=== PATIENT | male | born 1975 | race Caucasian/White ===

== ENCOUNTER 2020-01-20 13:58 | Inpatient (IN) | payer OTHER ==
[~2020-01-20] VITALS: Ht 160 cm; Wt 83.9 kg
--- NOTE | 2020-01-20 14:27 | NUR ---
PATIENT CAME TO ER BIB TO BED 17 C/O SOB. PATIENT STATES THAT HE IS COVID POSITIVE SINCE THE 1ST OF DECEMEBER. PATIENT ALSO C/O CHILLS, BODYACHES, AND HEADACHE. PATIENT IS AAOX4. BREATHING EVENLY AND UNLABORED ON NASAL CANNULA 3L AT 95%. CONNECTED TO THE MONITOR.
--- NOTE | 2020-01-20 14:43 | NUR ---
PATIENT'S BLOOD DRAWN AND SENT TO THE LAB.
[2020-01-20] MEDS ORDERED: IPRATROPIUM NEB FS 0.5 MG/2.5 ML AMPUL.NEB ONE (14:55)
[2020-01-20] MEDS ORDERED: ALBUTEROL FS 2.5 MG/3 ML VIAL.NEB ONE (14:55)
[2020-01-20] MEDS ORDERED: ACET325T53 PO (14:58)
[2020-01-20] MEDS ORDERED: DEXAMETHASONE SOD PHOSPHATE 10 MG/ML VIAL IV ONE (15:00)
[2020-01-20] MEDS ORDERED: ALBUTEROL FS 2.5 MG/3 ML VIAL.NEB NEB ONE (15:00)
[2020-01-20] MEDS ORDERED: IPRATROPIUM NEB FS 0.5 MG/2.5 ML AMPUL.NEB NEB ONE (15:00)
[2020-01-20 15:37] LABS: BASOPHILS % (AUTO) 0.1 % (0.0-2.0); HEMATOCRIT 43 % (39-51); HEMOGLOBIN 14.2 g/dL (13.5-17.5); LYMPHOCYTES # (AUTO) 0.9 /CMM (0.8-4.8); LYMPHOCYTES % (AUTO) 4.8 % (20.0-44.0); MEAN CORPUSCULAR HGB CONC 33 g/dl (31.0-36.0); MEAN CORPUSCULAR VOLUME 93 fL (80-96); MONOCYTES # (AUTO) 0.7 /CMM (0.1-1.30); NEUTROPHILS # (AUTO) 16.8 /CMM (1.8-8.9); NEUTROPHILS % (AUTO) 91.1 % (43.0-81.0); PLATELET COUNT (AUTO) 321 /CMM (150-450); RED BLOOD CELL COUNT(AUTO) 4.61 MIL/uL (4.5-6.0); WHITE BLOOD COUNT (AUTO) 18.4 K/uL (4.3-11.0)
[2020-01-20 15:44] LABS: CALCIUM, SERUM 7.9 mg/dL (8.5-10.1); CARBON DIOXIDE 25 mmol/L (21-32); CHLORIDE 99 mmol/L (98-107); GLUCOSE 128 mg/dL (74-106); POTASSIUM 3.8 mmol/L (3.5-5.1); SODIUM SERUM 133 mmol/L (136-145); UREA NITROGEN, BLOOD 12 mg/dL (7-18)
[2020-01-20 15:59] LABS: ALANINE AMINOTRANSFERASE 121 U/L (12-78); ALBUMIN 2.9 g/dL (3.4-5.0); ALKALINE PHOSPHATASE 82 U/L (46-116); ASPARTATE AMINOTRANSFERASE 50 U/L (15-37); B-TYPE NATRIURETIC PEPTIDE 124 PG/ML (0-125); BILIRUBIN,TOTAL 0.7 mg/dL (0.2-1.0); TOTAL PROTEIN, SERUM 7.3 g/dL (6.4-8.2)
[2020-01-20 16:21] LABS: CREATINE KINASE, TOTAL 132 U/L (39-308); FERRITIN 1273 ng/mL (8-388)
--- NOTE | 2020-01-20 17:25 | NUR ---
CALLED NURSING SUP FOR TELE BED.
[2020-01-20] MEDS ORDERED: MAG HYDROX/AL HYDROX/SIMETH 30 ML UDC PO PRN (18:00)
[2020-01-20] MEDS ORDERED: MAGNESIUM HYDROXIDE 30 ML UDC PO PRN (18:00)
[2020-01-20] MEDS ORDERED: Z GUARD REMEDY 2 OZ OINT TP PRN (18:00)
[2020-01-20] MEDS ORDERED: ACETAMINOPHEN 325 MG TABLET PO PRN (18:00)
[2020-01-20] MEDS ORDERED: HYDROCODONE/APAP 5/325MG TABLET PO PRN (18:00)
[2020-01-20] MEDS ORDERED: ONDANSETRON HCL/PF 4 MG/2 ML VIAL IVP PRN (18:00)
[2020-01-20] MEDS ORDERED: ZOLPIDEM TARTRATE 5 MG TABLET PO PRN (18:00)
[2020-01-20] MEDS ORDERED: DEXAMETHASONE SOD PHOSPHATE 10 MG/ML VIAL ONE ×2 (18:11→22:42)
[2020-01-20] MEDS: DOXYCYCLINE HYCLATE (100 MG) 100 MG TABLET PO SCH (18:13)
--- NOTE | 2020-01-20 21:39 | NUR ---
REPORT GIVEN TO KINA KEARNS FOR ROCKY.
--- NOTE | 2020-01-20 21:52 | NUR ---
PATIENT TAKEN ASSIGNED ROOM FOR ROCKY.
--- NOTE | 2020-01-20 21:55 | NUR ---
TELE/RN OPENING NOTES: RECEIVED REPORT FROM SADIA MAHONEY NURSE. PATIENT IS A/O X 4, WITH NO SIGNS OF DISTRESS. NO SOB NOTED. BREATHING EVEN AND UNLABORED. ON 3L OXYGEN VIA NASAL CANNULA. DENIES PAIN AND DISCOMFORT AT THIS TIME. IV ON THE R FA #18G SL. SKIN WARM, DRY AND INTACT. NO PHOTOS TAKEN. TELE MONITOR SR. ORIENTED TO STAFF AND UNIT. SAFETY MEASURES ARE INITIATED. BED IN LOW, LOCKED POSITION WITH SIDE RAILS UP X 2. CALL LIGHT WITHIN REACH. WILL CONTINUE TO MONITOR ACCORDINGLY.
[2020-01-20] MEDS ORDERED: REMDESIVIR (CHARGED) 200 MG, *LOADING DOSE 1 EA in IV NS 0.9% 210 ML IV ONE (22:00)
[2020-01-20] MEDS ORDERED: CEFTRIAXONE 1 G in IV D5W 50 ML IV SCH (22:00)
[2020-01-20] MEDS ORDERED: DEXAMETHASONE SOD PHOSPHATE 6 MG in IV D5W 50 ML IV SCH (22:00)
[2020-01-20] MEDS: ENOXAPARIN SODIUM 40 MG/0.4 ML DISP.SYRIN SQ SCH (22:17)
[2020-01-20] MEDS ORDERED: CEFTRIAXONE 1 G VIAL ONE (22:42)
[2020-01-20 22:55] VITALS: BP 123/76
[2020-01-21] VITALS: BP 110/76
[2020-01-21] MEDS: CEFTRIAXONE 1 G in IV D5W 50 ML IV SCH ×2 (00:19→23:34)
[2020-01-21 04:00] VITALS: BP 109/72
[2020-01-21 06:43] LABS: HEMATOCRIT 39 % (39-51); HEMOGLOBIN 13.3 g/dL (13.5-17.5); LYMPHOCYTES # (AUTO) 0.7 /CMM (0.8-4.8); LYMPHOCYTES % (AUTO) 4.3 % (20.0-44.0); MEAN CORPUSCULAR HGB CONC 34 g/dl (31.0-36.0); MEAN CORPUSCULAR VOLUME 91 fL (80-96); MONOCYTES # (AUTO) 0.8 /CMM (0.1-1.30); MONOCYTES % (AUTO) 4.9 % (2.0-12.0); NEUTROPHILS # (AUTO) 14.1 /CMM (1.8-8.9); NEUTROPHILS % (AUTO) 90.8 % (43.0-81.0); PLATELET COUNT (AUTO) 393 /CMM (150-450); RED BLOOD CELL COUNT(AUTO) 4.23 MIL/uL (4.5-6.0); WHITE BLOOD COUNT (AUTO) 15.5 K/uL (4.3-11.0)
[2020-01-21 07:00] LABS: ALBUMIN 2.5 g/dL (3.4-5.0); BILIRUBIN,DIRECT 0.2 mg/dL (0.0-0.2); BILIRUBIN,TOTAL 0.4 mg/dL (0.2-1.0); TOTAL PROTEIN, SERUM 6.9 g/dL (6.4-8.2)
[2020-01-21 07:06] LABS: CALCIUM, SERUM 7.6 mg/dL (8.5-10.1); CREATININE 0.9 mg/dL (0.6-1.3); MAGNESIUM 2.7 mg/dL (1.8-2.4); PHOSPHORUS 2.3 mg/dL (2.5-4.9); POTASSIUM 3.9 mmol/L (3.5-5.1)
[2020-01-21 07:21] LABS: THYROID STIMULATING HORMONE 0.517 uIU/mL (0.358-3.74)
--- NOTE | 2020-01-21 07:30 | NUR ---
TELE/RN CLOSING NOTES: PATIENT REMAINS A/O X 4, WITH NO SIGNS OF DISTRESS. NO SOB NOTED. BREATHING EVEN AND UNLABORED. ON 3L OXYGEN VIA NASAL CANNULA. DENIES PAIN AND DISCOMFORT AT THIS TIME. IV ON THE R FA #18G SL. SKIN WARM, DRY AND INTACT. NO PHOTOS TAKEN. TELE MONITOR SR. SAFETY MEASURES ARE IN PLACE. BED IN LOW, LOCKED POSITION WITH SIDE RAILS UP X 2. CALL LIGHT WITHIN REACH. WILL ENDORSE TO DAY SHIFT FOR ROCKY.
[2020-01-21 08:00] VITALS: BP 109/65
--- NOTE | 2020-01-21 08:03 | NUR ---
SILK WINDING MACHINE OPERATOR OPEN NOTES PATIENT IS A/O X 4 WITH NO SIGNS OF DISTRESS ON 3L OF NASAL CANNULA. IV R FA #18G SL. NO COMPLAIN OF PAIN AT THIS TIME. TELE MONITOR SR. SAFETY MEASURES ARE APPLIED, BED IS IN LOW POSITION SIDE RAILS UP X 2. CALL LIGHT WITHIN REACH. WILL CONTINUE TO MONITOR.
[2020-01-21] MEDS: DOXYCYCLINE HYCLATE (100 MG) 100 MG TABLET PO SCH ×2 (09:45→16:55)
[2020-01-21] MEDS: PANTOPRAZOLE 40 MG TABLET.DR PO SCH (09:45)
[2020-01-21 12:00] VITALS: BP 116/71
[2020-01-21] MEDS: DEXAMETHASONE SOD PHOSPHATE 10 MG/ML VIAL IV SCH (12:30)
[2020-01-21] MEDS ORDERED: NEUTRA PHOS 1 POWD.PACKET PO ONE (15:00)
[2020-01-21 15:20] LABS: C-REACTIVE PROTEIN 32.5 mg/dL (0.0-0.9)
[2020-01-21 16:00] VITALS: BP 110/67
[2020-01-21] MEDS: REMDESIVIR (CHARGED) 100 MG in IV NS 0.9% 230 ML IV SCH (16:55)
--- NOTE | 2020-01-21 19:32 | NUR ---
MANAGER MATERIAL CLOSING NOTES PATIENT IS A/O X 4 WITH NO SIGNS OF DISTRESS ON 3L OF NASAL CANNULA. IV R FA #18G SL. NO COMPLAIN OF PAIN AT THIS TIME. TELE MONITOR SR 91. PATIENT KEPT CLEAN AND DRY. ALL NEEDS, CARE, TREATMENT,AND MEDICATIONS WERE ADMINISTERED ANTICIPATED PER ORDER. SAFETY MEASURES ARE APPLIED, BED IS IN LOW POSITION SIDE RAILS UP X 2. CALL LIGHT WITHIN REACH WILL ENDORSE TO THE NEURO UROLOGIST NURSE.
[2020-01-21 20:00] VITALS: BP_SYST 108; BP_SYST 134; BP_DIAS 67; BP_DIAS 85
--- NOTE | 2020-01-21 20:40 | NUR ---
MARKETING OPERATIONS COORDINATOR NOTES RECEIVED ON BED A/O X4,BREATHING REGULAR,NOT IN ANY FORM OF DISTRESS.O2 3L/NC IN USED,O2 SAT 93%.SALINE LOCK RFA INTACT AND PATENT.DENIES DISCOMFORTS AT THE MOMENT.CALL LIGHT IN REACH,NEEDS ANTICIPATED.
[2020-01-21] MEDS: ENOXAPARIN SODIUM 40 MG/0.4 ML DISP.SYRIN SQ SCH (21:37)
[2020-01-22] VITALS: BP_SYST 98; BP_DIAS 54; BP_DIAS 57
[2020-01-22 04:00] VITALS: BP 106/61
[2020-01-22 06:02] LABS: BASOPHILS % (AUTO) 0.1 % (0.0-2.0); HEMATOCRIT 39 % (39-51); HEMOGLOBIN 13.3 g/dL (13.5-17.5); LYMPHOCYTES % (AUTO) 8.2 % (20.0-44.0); MEAN CORPUSCULAR HGB CONC 34 g/dl (31.0-36.0); MEAN CORPUSCULAR VOLUME 91 fL (80-96); MONOCYTES # (AUTO) 1.5 /CMM (0.1-1.30); MONOCYTES % (AUTO) 11.8 % (2.0-12.0); NEUTROPHILS # (AUTO) 10.1 /CMM (1.8-8.9); NEUTROPHILS % (AUTO) 79.9 % (43.0-81.0); PLATELET COUNT (AUTO) 475 /CMM (150-450); RED BLOOD CELL COUNT(AUTO) 4.32 MIL/uL (4.5-6.0); WHITE BLOOD COUNT (AUTO) 12.6 K/uL (4.3-11.0)
--- NOTE | 2020-01-22 06:23 | NUR ---
[facility] CONSULTANT NOTES FAIRLY RESTED,ASLEEP MOST OF THE NIGHT,AFEBRILE,NO SOB,O2 IN USED AT 3/NC TO KEEP O2 SAT ABOVE 90%,JERAMY LOCK REMAINS PATENT.DUE IV ABX ADMINISTERED SCHEDULED.NO EPISODE OF DIARRHEA NOTED.IN NO ACUTE DISTRESS.
[2020-01-22 06:26] LABS: ALBUMIN 2.4 g/dL (3.4-5.0); BILIRUBIN,DIRECT 0.2 mg/dL (0.0-0.2); BILIRUBIN,TOTAL 0.4 mg/dL (0.2-1.0); CALCIUM, SERUM 8.2 mg/dL (8.5-10.1); PHOSPHORUS 3.8 mg/dL (2.5-4.9); POTASSIUM 4.5 mmol/L (3.5-5.1); TOTAL PROTEIN, SERUM 6.6 g/dL (6.4-8.2)
[2020-01-22 08:00] VITALS: BP 100/61
[2020-01-22] MEDS: PANTOPRAZOLE 40 MG TABLET.DR PO SCH (09:06)
[2020-01-22] MEDS: DOXYCYCLINE HYCLATE (100 MG) 100 MG TABLET PO SCH ×2 (09:06→18:12)
[2020-01-22] MEDS: DEXAMETHASONE SOD PHOSPHATE 10 MG/ML VIAL IV SCH (09:06)
[2020-01-22 15:38] LABS: C-REACTIVE PROTEIN 9.8 mg/dL (0.0-0.9)
[2020-01-22 16:00] VITALS: BP 105/65
[2020-01-22] MEDS: REMDESIVIR (CHARGED) 100 MG in IV NS 0.9% 230 ML IV SCH (18:31)
--- NOTE | 2020-01-22 19:40 | NUR ---
TELE/RN OPENING NOTES: RECEIVED PATIENT A/O X 4, VERBALLY RESPONSIVE AND ABLE TO MAKE NEEDS KNOWN. NO SOB NOTED, NO SIGNS OF DISTRESS. BREATHING EVEN AND UNLABORED. ON 3L OXYGEN VIA NASAL CANNULA SATURATING AT 93%. WILL ALEJO TO TITRATE THE O2 PT TOLERATES. NO C/O PAIN AND DISCOMFORT AT THIS TIME. NO IV AT THIS TIME. WILL INSERT A NEW IV SITE. SKIN WARM, DRY AND INTACT. ON TELE MONITORING WITH READING OF SR. SAFETY MEASURES ARE IN PLACE. BED IN LOW, LOCKED POSITION WITH SIDE RAILS UP X 2. CALL LIGHT WITHIN REACH. WILL CONTINUE TO MONITOR ACCORDINGLY.
--- NOTE | 2020-01-22 19:46 | NUR ---
TELE/RN NOTES: INFORMED DR. ANSHUL FRANCIS THAT PT IS COVID AG RAPID +, BUT NO PCR WAS DONE. PER DR. FRANCIS, NO NEED FOR PCR.
--- NOTE | 2020-01-22 19:47 | NUR ---
TELE/RN NOTES: PT. NEW IV SITE IS ON THE LEFT HAND #22G. INTACT AND PATENT, FLUSHING WELL.
[2020-01-22 20:00] VITALS: BP 99/62
--- NOTE | 2020-01-22 20:03 | NUR ---
LEADERSHIP PROGRAM INTERNSHIP CLOSING NOTES PATIENT IS A/O X 4 WITH NO SIGNS OF DISTRESS ON 3L OF NASAL CANNULA. NO COMPLAIN OF PAIN AT THIS TIME. TELE MONITOR SR. PATIENT KEPT CLEAN AND DRY. ALL NEEDS, CARE, TREATMENT,AND MEDICATIONS WERE ADMINISTERED ANTICIPATED PER ORDER. SAFETY MEASURES ARE APPLIED, BED IS IN LOW POSITION SIDE RAILS UP X 2. CALL LIGHT WITHIN REACH WILL ENDORSE TO THE STONE CHIMNEY MASON NURSE.
[2020-01-22] MEDS: ENOXAPARIN SODIUM 40 MG/0.4 ML DISP.SYRIN SQ SCH (22:59)
[2020-01-22] MEDS: CEFTRIAXONE 1 G in IV D5W 50 ML IV SCH (23:01)
[2020-01-23] VITALS: BP 104/65
[2020-01-23 04:00] VITALS: BP 100/62
--- NOTE | 2020-01-23 07:06 | NUR ---
TELE/RN OPENING NOTES: RECEIVED PATIENT A/OX4, VERBALLY RESPONSIVE AND ABLE TO MAKE NEEDS KNOWN. NO SOB NOTED, NO SIGNS OF DISTRESS. BREATHING EVEN AND UNLABORED. ON 2L OXYGEN VIA NASAL CANNULA SATURATING AT 94%. NO C/O PAIN AND DISCOMFORT AT THIS TIME. NO IV AT THIS TIME. IV ON THE LEFT HAND #22G, INTACT AND PATENT, ON TELE MONITORING WITH READING OF SR. SAFETY MEASURES ARE IN PLACE. BED IN LOW, LOCKED POSITION WITH SIDE RAILS UP X 2. CALL LIGHT WITHIN REACH. ALL DUE MEDS GIVEN ORDERED. ALL NURSING NEEDS MET AND RENDERED, WILL ENDORSE TO DAY SHIFT FOR ROCKY.
[2020-01-23 08:00] VITALS: BP 98/63
--- NOTE | 2020-01-23 08:00 | NUR ---
RN Opening note Received patient in bed AO x 4 able to responds all stimuli, does no c/o pain or discomfort. Skin is warm to touch keep clean/dry, intact IV sit. Respiratory even and unlabored with oxygen at 3LPM via n/c, no sob or distress observed. Kept bed locked with elevated HOB for ensure airway and aspiration precaution also lowest bed position for safety. Call light within reach will continue to monitor.
[2020-01-23 08:13] LABS: D-DIMER 1.11 mg/L(FEU (0.17-0.50)
[2020-01-23] MEDS: PANTOPRAZOLE 40 MG TABLET.DR PO SCH (08:13)
[2020-01-23 08:17] LABS: BASOPHILS % (AUTO) 0.1 % (0.0-2.0); EOSINOPHILS % (AUTO) 0.3 % (0.0-6.0); HEMATOCRIT 43 % (39-51); HEMOGLOBIN 14.3 g/dL (13.5-17.5); LYMPHOCYTES # (AUTO) 2.3 /CMM (0.8-4.8); LYMPHOCYTES % (AUTO) 21.7 % (20.0-44.0); MEAN CORPUSCULAR HGB CONC 33 g/dl (31.0-36.0); MEAN CORPUSCULAR VOLUME 93 fL (80-96); MONOCYTES # (AUTO) 1.8 /CMM (0.1-1.30); MONOCYTES % (AUTO) 16.4 % (2.0-12.0); NEUTROPHILS # (AUTO) 6.6 /CMM (1.8-8.9); NEUTROPHILS % (AUTO) 61.5 % (43.0-81.0); PLATELET COUNT (AUTO) 578 /CMM (150-450); RED BLOOD CELL COUNT(AUTO) 4.62 MIL/uL (4.5-6.0); WHITE BLOOD COUNT (AUTO) 10.7 K/uL (4.3-11.0)
[2020-01-23 08:38] LABS: ALBUMIN 2.5 g/dL (3.4-5.0); BILIRUBIN,DIRECT 0.2 mg/dL (0.0-0.2); BILIRUBIN,TOTAL 0.4 mg/dL (0.2-1.0); CALCIUM, SERUM 8.4 mg/dL (8.5-10.1); POTASSIUM 4.3 mmol/L (3.5-5.1); TOTAL PROTEIN, SERUM 6.6 g/dL (6.4-8.2)
[2020-01-23 09:23] LABS: CREATINE KINASE, TOTAL 43 U/L (39-308)
[2020-01-23 09:25] LABS: FERRITIN 1217 ng/mL (8-388)
[2020-01-23] MEDS: DOXYCYCLINE HYCLATE (100 MG) 100 MG TABLET PO SCH ×2 (10:14→17:02)
[2020-01-23] MEDS: DEXAMETHASONE SOD PHOSPHATE 10 MG/ML VIAL IV SCH (10:14)
[2020-01-23 11:10] LABS: BAND % (MANUAL) 2 % (0.0-5.0); LYMPHOCYTES % (MANUAL) 20 % (16-48); MONOCYTES % (MANUAL) 12 % (0-11.0)
[2020-01-23 15:16] LABS: C-REACTIVE PROTEIN 5.6 mg/dL (0.0-0.9)
[2020-01-23 15:18] LABS: NEUTROPHILS % (MANUAL) 66 (42-76)
[2020-01-23 16:00] VITALS: BP 93/61
[2020-01-23] MEDS: REMDESIVIR (CHARGED) 100 MG in IV NS 0.9% 230 ML IV SCH (18:17)
--- NOTE | 2020-01-23 20:13 | NUR ---
RN Closing note Patient in bed finished dinner, does no appears pain or distress. Skin is warm to touch intact IV site, no fever observed during day shift. Respiratory even and unlabored with oxygen. Kept locked bed with elevated HOB for ensure airway and aspiration precaution also lowest position for safety, call light within reach, will endorse night shift supervisor.
--- NOTE | 2020-01-23 20:15 | NUR ---
CHEMICAL PREPARER NOTE: PATIENT RESTING IN BED, NO ACUTE DISTRESS NOTED. BREATHING EVEN AND UNLABORED, NO SOB NOTED. IV TO LEFT HAND IN PLACE. BED LOCKED AND IN LOWEST POSITION, CALL LIGHT IN REACH. WILL CONTINUE TO MONITOR.
[2020-01-23] MEDS: ENOXAPARIN SODIUM 40 MG/0.4 ML DISP.SYRIN SQ SCH (22:47)
[2020-01-23] MEDS: CEFTRIAXONE 1 G in IV D5W 50 ML IV SCH (23:21)
--- NOTE | 2020-01-24 06:30 | NUR ---
CORROSION ENGINEER NOTE: PATIENT RESTING IN BED, NO ACUTE DISTRESS NOTED. BREATHING EVEN AND UNLABORED, NO SOB NOTED. IV TO LEFT HAND IN PLACE. BED LOCKED AND IN LOWEST POSITION, CALL LIGHT IN REACH. WILL ENDORSE TO DAY NURSE TO CONTINUE WITH PLAN OF CARE.
[2020-01-24] MEDS: PANTOPRAZOLE 40 MG TABLET.DR PO SCH (07:44)
[2020-01-24 07:48] LABS: EOSINOPHILS % (AUTO) 1.1 % (0.0-6.0); HEMATOCRIT 42 % (39-51); HEMOGLOBIN 14.2 g/dL (13.5-17.5); LYMPHOCYTES # (AUTO) 3.3 /CMM (0.8-4.8); LYMPHOCYTES % (AUTO) 23.8 % (20.0-44.0); MEAN CORPUSCULAR HGB CONC 34 g/dl (31.0-36.0); MEAN CORPUSCULAR VOLUME 93 fL (80-96); MONOCYTES # (AUTO) 1.5 /CMM (0.1-1.30); MONOCYTES % (AUTO) 11.1 % (2.0-12.0); NEUTROPHILS # (AUTO) 8.8 /CMM (1.8-8.9); PLATELET COUNT (AUTO) 596 /CMM (150-450); RED BLOOD CELL COUNT(AUTO) 4.54 MIL/uL (4.5-6.0); WHITE BLOOD COUNT (AUTO) 13.7 K/uL (4.3-11.0)
[2020-01-24 07:53] LABS: ALBUMIN 2.5 g/dL (3.4-5.0); BILIRUBIN,DIRECT 0.1 mg/dL (0.0-0.2); BILIRUBIN,TOTAL 0.3 mg/dL (0.2-1.0); CALCIUM, SERUM 8.2 mg/dL (8.5-10.1); CREATININE 0.9 mg/dL (0.6-1.3); MAGNESIUM 2.2 mg/dL (1.8-2.4); PHOSPHORUS 3.6 mg/dL (2.5-4.9); POTASSIUM 4.2 mmol/L (3.5-5.1); TOTAL PROTEIN, SERUM 6.5 g/dL (6.4-8.2)
--- NOTE | 2020-01-24 07:54 | NUR ---
RN Opening note Received patient in bed AO x 4 able to responds all stimuli, does no c/o pain or discomfort. Skin is warm to touch keep clean/dry, intact IV sit on left hand 22g. Respiratory even and unlabored with oxygen at 3LPM via n/c, no sob or distress observed. Kept bed locked with elevated HOB for ensure airway and aspiration precaution also lowest bed position for safety. Call light within reach will continue to monitor.
[2020-01-24 08:00] VITALS: BP 100/62
[2020-01-24] MEDS: DOXYCYCLINE HYCLATE (100 MG) 100 MG TABLET PO SCH ×2 (08:50→17:29)
[2020-01-24] MEDS: DEXAMETHASONE SOD PHOSPHATE 10 MG/ML VIAL IV SCH (08:51)
[2020-01-24 12:00] VITALS: BP 94/70
[2020-01-24 16:00] VITALS: BP 110/68
[2020-01-24] MEDS: REMDESIVIR (CHARGED) 100 MG in IV NS 0.9% 230 ML IV SCH (17:46)
--- NOTE | 2020-01-24 18:00 | NUR ---
Patient noticed 4 episodes for Bigeminy lasting between 40-45, patient denies chest pain or discomfort. MD made aware regarding above, no new order at this time. Will continue to monitor.
--- NOTE | 2020-01-24 18:57 | NUR ---
N Closing note Patient in bed resting, denies pain or distress. Skin is warm to touch intact IV site on left hand 22g with SL. Respiratory even and unlabored on room air O2sat 99-100%. Kept locked bed with elevated HOB for ensure airway and aspiration precaution also lowest position for safety, call light within reach, will endorse slot shift supervisor. Addendum: 01/24/20 at 1905 by FERMÍN SOARES RN Error
--- NOTE | 2020-01-24 19:05 | NUR ---
RN Closing note Patient in bed resting, Wolof speaking, does no appears pain or distress. Skin is warm to touch intact IV site on left hand with SL. Respiratory even and unlabored on room air O2sat 90-100% with deep breath/exhale. Encouraged patient to deep breathing exercises as tolerated. Kept locked bed with elevated HOB for ensure airway and aspiration precaution also lowest position for safety, call light within reach, will endorse manufacturing shift supervisor.
[2020-01-24 20:00] VITALS: BP 112/71
--- NOTE | 2020-01-24 20:20 | NUR ---
FABRICATING MACHINE OPERATOR NOTE: PATIENT RESTING IN BED, NO ACUTE DISTRESS NOTED. BREATHING EVEN AND UNLABORED, NO SOB NOTED. IV TO LEFT HAND IN PLACE. ISOLATION PRECAUTIONS OBSERVED. BED LOCKED AND IN LOWEST POSITION, CALL LIGHT IN REACH. WILL CONTINUE TO MONITOR.
[2020-01-24] MEDS: ENOXAPARIN SODIUM 40 MG/0.4 ML DISP.SYRIN SQ SCH (22:23)
[2020-01-24] MEDS: CEFTRIAXONE 1 G in IV D5W 50 ML IV SCH (23:40)
[2020-01-25] VITALS: BP 108/71
--- NOTE | 2020-01-25 06:30 | NUR ---
RECEIVABLE CLERK NOTE: PATIENT RESTING IN BED, NO ACUTE DISTRESS NOTED. BREATHING EVEN AND UNLABORED, NO SOB NOTED. IV TO LEFT HAND IN PLACE. BED LOCKED AND IN LOWEST POSITION, CALL LIGHT IN REACH. WILL ENDORSE TO DAY NURSE TO CONTINUE WITH PLAN OF CARE.
--- NOTE | 2020-01-25 07:30 | NUR ---
PT RECEIVED RESTING COMFORTABLY IN BED. NO S/S OR C/O PAIN OR DISTRESS NOTED. SIDE RAILS UP X2, CALL LIGHT LEFT WITHIN REACH. WILL CONTINUE PLAN OF CARE.
[2020-01-25 08:00] VITALS: BP 101/60
[2020-01-25 08:33] LABS: BASOPHILS % (AUTO) 0.1 % (0.0-2.0); EOSINOPHILS % (AUTO) 1.2 % (0.0-6.0); HEMATOCRIT 42 % (39-51); HEMOGLOBIN 14.1 g/dL (13.5-17.5); LYMPHOCYTES # (AUTO) 3.6 /CMM (0.8-4.8); LYMPHOCYTES % (AUTO) 25.9 % (20.0-44.0); MEAN CORPUSCULAR HGB CONC 33 g/dl (31.0-36.0); MEAN CORPUSCULAR VOLUME 93 fL (80-96); MONOCYTES # (AUTO) 1.3 /CMM (0.1-1.30); MONOCYTES % (AUTO) 9.5 % (2.0-12.0); NEUTROPHILS # (AUTO) 8.9 /CMM (1.8-8.9); NEUTROPHILS % (AUTO) 63.3 % (43.0-81.0); PLATELET COUNT (AUTO) 671 /CMM (150-450); RED BLOOD CELL COUNT(AUTO) 4.57 MIL/uL (4.5-6.0)
[2020-01-25 08:52] LABS: ALBUMIN 2.6 g/dL (3.4-5.0); BILIRUBIN,DIRECT 0.7 mg/dL (0.0-0.2); BILIRUBIN,TOTAL 0.3 mg/dL (0.2-1.0); CALCIUM, SERUM 8.2 mg/dL (8.5-10.1); CREATININE 0.9 mg/dL (0.6-1.3); TOTAL PROTEIN, SERUM 7.6 g/dL (6.4-8.2)
[2020-01-25] MEDS: PANTOPRAZOLE 40 MG TABLET.DR PO SCH (09:57)
[2020-01-25] MEDS: DEXAMETHASONE SOD PHOSPHATE 10 MG/ML VIAL IV SCH (09:57)
[2020-01-25] MEDS: DOXYCYCLINE HYCLATE (100 MG) 100 MG TABLET PO SCH (09:57)
--- NOTE | 2020-01-25 11:50 | NUR ---
DISCHARGE INSTRUCTIONS GIVEN ORDERED. ENCOURAGED TO FOLLOW UP WITH PMD INSTRUCTED. ALL QUESTIONS AND CONCERNS ADDRESSED. PATIENT VERBALIZED UNDERSTANDING. MEDICATION RECONCILIATION FORM COMPLETED AND COPY GIVEN TO PATIENT. IV REMOVED WITH CATHETER INTACT, PRESSURE DRESSING APPLIED. TELE UNIT RETURNED TO STATION. PATIENT TAKEN TO VEHICLE WITH ALL PERSONAL BELONGINGS ACCOMPANIED BY STAFF. NO DISTRESS NOTED AT TIME OF DEPARTURE.
== END 2020-01-25 12:15 | disposition home or self-care (01) | DRG 720 ==
LOC: ER 14:38 → TELE2 21:38
PROVIDERS: ATTEND Nurse Practitioner Acute Care
PROC: XW033E5 Introduction of Remdesivir Anti-infective into Peripheral Vein, Percutaneous Approach, New Technology Group 5 (ICD-10-PCS; principal; 2020-01-20)
PROC: XW13325 Transfusion of Convalescent Plasma (Nonautologous) into Peripheral Vein, Percutaneous Approach, New Technology Group 5 (ICD-10-PCS; 2020-01-20)
DX: A41.89 Other specified sepsis (principal); U07.1 COVID-19; E87.1 Hypo-osmolality and hyponatremia; E44.1 Mild protein-calorie malnutrition; J12.89 Other viral pneumonia; J96.21 Acute and chronic respiratory failure with hypoxia; K76.0 Fatty (change of) liver, not elsewhere classified; J15.9 Unspecified bacterial pneumonia; E88.09 Other disorders of plasma-protein metabolism, not elsewhere classified
CPT/HCPCS: 36415; 71045-TC; 76705-TC; 80048-TC; 80053-TC; 80061-TC; 80076-TC; 82550-TC; 82728-TC; 83605-TC; 83615-TC; 83735-TC; 83880; 84100-TC; 84443-TC; 84484-TC; 85025-TC; 85378-TC; 85610-TC; 86140-TC; 86850-TC; 87040-TC; 87081-TC; A4216; C9803; G0378; J0696; J1100; J1650; J7050; J7060